=== PATIENT | female | born 1960 | race Caucasian/White ===

== ENCOUNTER → 2018-01-11 | Outpatient (CLI) | payer OTHER ==
--- NOTE | 2018-01-11 16:23 | RADIOLOGY IMAGING REPORT ---
FACILITY: [facility] PATIENT NAME: CHLOÉ RUBIO : [id number] MR: [id number] V: [id number] EXAM DATE: [id number] ORDERING PHYSICIAN: FERN DIAS TECHNOLOGIST: Tiffany Hall PROCEDURE:BILATERAL DIGITAL SCREENING MAMMOGRAM WITH CAD ASSISTED INTERPRETATION & 3D TOMOSYNTHESIS COMPARISON:Prior mammograms 09/01/16, 06/20/14. INDICATIONS:SCREENING FINDINGS: There are bilateral subpectoral breast implants in place. CC and MLO views were obtained both with and without implant displacement. Small to moderate amount of fibroglandular tissue is seen anterior to the implants. The parenchymal pattern has remained stable allowing for difference in mammographic technique & patient positioning. There is no evidence of malignant appearing mass, malignant appearing calcifications or other secondary sign of malignancy in either breast. DIAGNOSTIC CATEGORY 2--BENIGN FINDING. RECOMMENDATIONS: ROUTINE MAMMOGRAM AND CLINICAL EVALUATION. IMPRESSION: BIRADS 2: Benign finding No significant abnormality is seen. Dictated by: Kalpana Muniz M.D. on 01/11/2018 at 11:48 Transcribed by: FARHAN on 01/11/2018 at 13:07 Approved by: Kalpana Muniz M.D. on 01/11/2018 at 16:22 [facility]
== END ==
LOC: MAMO 01:03
PROVIDERS: ATTEND Obstetrics & Gynecology
DX: Z12.31 Encounter for screening mammogram for malignant neoplasm of breast (principal); Z98.82 Breast implant status
CPT/HCPCS: 77063; 77067

== ENCOUNTER → 2018-02-08 | Outpatient (CLI) | payer OTHER ==
--- NOTE | 2018-02-08 16:17 | RADIOLOGY IMAGING REPORT ---
FACILITY: [facility] PATIENT NAME: Marilu Sainz : 1960 MR: [id number] V: [id number] EXAM DATE: [id number] ORDERING PHYSICIAN: CIERRA MCGRAW TECHNOLOGIST: Location: [facility] Patient: Marilu Sainz : 1960 Visit/Account:[id number] Date of Sevice: 02/08/2018 FOOT LEFT W/O CONTRAST COMPARISON: None. HISTORY: Delayed healing left fifth metatarsal fracture. TECHNIQUE: Noncontrast axial CT of the left foot and ankle with coronal and sagittal reformats. One of the following dose optimization techniques was utilized in the performance of this exam: auto mated exposure control; adjustment of the mA and/or kV according to patient size; or use of iterative reconstruction technique. Specific details can be referenced in the facility's radiology CT exam op erational policy. CONTRAST: None. FINDINGS: BONES : There is a lucent oblique fracture through the mid fifth metatarsal shaft, with up to 2 mm o f medial displacement of the distal fracture fragment distally. There is no evidence of bony bridging but there is a small amount of callus within the fracture line, particularly along its plantar mathieu n. There are no sclerotic changes. No other fractures are seen. Alignment within normal study. Calcan eal height is preserved. No significant degenerative changes in the foot or ankle. No osteochondral d efects in the talar dome. FLUID: No appreciable effusion or drainable fluid collection. SOFT TISSUES: The major ankle tendons and foot tendons are normal by CT... No focal muscle atrophy or appreciable muscle edema. OTHER: Negative. IMPRESSION: Oblique left fifth metatarsal midshaft fracture with up to 2 mm of medial displacement of the distal fracture fragment. Small amount of callus along the fracture line, but no bony bridging at this time. . Report Dictated By: Jayden Izaguirre at 02/08/2018 4:08 PM Report E-Signed By: Jayden Izaguirre at 02/08/2018 4:13 PM WSN:[id number]
== END ==
LOC: CT 13:54
PROVIDERS: ATTEND Orthopaedic Surgery
DX: S92.352G Displaced fracture of fifth metatarsal bone, left foot, subsequent encounter for fracture with delayed healing (principal)

== ENCOUNTER → 2018-09-06 | Outpatient (CLI) | payer OTHER ==
--- NOTE | 2018-09-06 15:24 | RADIOLOGY IMAGING REPORT ---
FACILITY: [facility] PATIENT NAME: Marilu Sainz : 1960 MR: [id number] V: [id number] EXAM DATE: ORDERING PHYSICIAN: FERN DIAS TECHNOLOGIST: Location: [facility] Patient: Marilu Sainz : 1960 Visit/Account:[id number] Date of Sevice: 09/06/2018 DEXA Scan Clinical history: History of osteoporosis,. Comparison: DEXA scan from 04/05/2017. LUMBAR SPINE: The bone mineral density (BMD) measured from L1-L4 correlates with a Z-score of -0.8 and a T-score of -2.1 which is osteopenia as defined by the World Health Organization. The corresponding risk of fra cture in the lumbar spine is 4-6 times increased compared with a young adult reference population. T his value has increase by 5.1 % since the prior study. More than 5% change is considered significant . HIP: Bone mineral density (BMD) measured in the LEFT total hip region correlates with a Z-score -0.2 and a T-score of -1.2 which is osteopenia as defined by the World Health Organization. The corresponding risk of fracture in the hip is 2-3 times increased compared to a young adult reference population. Th is value has decrease by 0.2 % since the prior study. More than 5% change is considered significant. T score left femoral neck -1.2 Bone mineral density (BMD) measured in the Femoral Neck region measures 0.877 g/cm?. IMPRESSION: 1. Lumbar spine: Osteopenia. There has been 5.1% increase in the bone mineral density since the pre vious exam. 2. Left Total Hip: Osteopenia. There has been 0.2% decrease in the bone mineral density since the p revious exam. 3. Femoral Neck: Bone Mineral Density is 0.877 g/cm? The next DEXA scan of this patient should include the following sites: L1-L4 and the left hip. FRAX? WHO Fracture Risk Assessment Tool link: <http://www.shef.ac.uk/FRAX/tool.jsp?locationValue=9> PLEASE NOTE: 1) The World Health Organization defines low BMD as follows: T-score Normal > -1 Osteopenia < -1 and > -2.5 Osteoporosis < -2.5 without fractures Established osteoporosis < -2.5 with fractures 2) In general, you may wish to consider: Diagnosis Treatment Follow-up DEXA Normal BMD Prevention 2-3 years Osteopenia Prevention/therapy 1-2 years Osteoporosis Therapy Yearly 3) Fracture risk estimated from the T-score is more accurate for vertebral fractures (often spontane ous) than for hip fractures. Report Dictated By: Kalpana Muniz MD at 09/06/2018 3:17 PM Report E-Signed By: Kalpana Muniz MD at 09/06/2018 3:19 PM WSN:[id number]
== END ==
LOC: RAD 09:51
PROVIDERS: ATTEND Obstetrics & Gynecology
DX: Z13.820 Encounter for screening for osteoporosis (principal); M85.89 Other specified disorders of bone density and structure, multiple sites
CPT/HCPCS: 77080

== ENCOUNTER → 2019-04-22 | Outpatient (CLI) | payer OTHER ==
--- NOTE | 2019-04-23 11:31 | RADIOLOGY IMAGING REPORT ---
FACILITY: [facility] PATIENT NAME: CHLOÉ RUBIO : [id number] MR: [id number] V: [id number] EXAM DATE: [id number] ORDERING PHYSICIAN: FERN DIAS TECHNOLOGIST: Myriam Oseguera PROCEDURE: BILATERAL DIGITAL SCREENING MAMMOGRAM WITH CAD ASSISTED INTERPRETATION & 3D TOMOSYNTHESIS REASON FOR STUDY: Screening. COMPARISON: 01/11/18, priors to 06/20/14. VIEWS OBTAINED: 2D & 3D full field CC & MLO projections. BREAST DENSITY: The breast parenchyma is heterogeneously dense. MAMMOGRAM FINDINGS: The indwelling bilateral implants appear to have been revised from saline to silicone between the 2013 & 2015 comparison exams. There is density over the posterior superior aspect of the Left implant in the MLO projection. The implants are otherwise unremarkable in appearance. There are no mammographic findings concerning for malignancy. IMPRESSION: BIRADS 2: Benign finding. Clinical correlation with attention to the Left breast implant. If there is any clinical concern for implant rupture, breast MR could be utilized for silicone extravagation. DIAGNOSTIC CATEGORY 2--BENIGN FINDING. RECOMMENDATIONS: ROUTINE MAMMOGRAM AND CLINICAL EVALUATION IN 1YR. Dictated by: Marciano Simmons on 04/23/2019 at 9:24 Transcribed by: FARHAN on 04/23/2019 at 10:57 Approved by: Marciano Simmons on 04/23/2019 at 11:27 [facility]
== END ==
LOC: MAMO 00:46
PROVIDERS: ATTEND Obstetrics & Gynecology
DX: Z12.31 Encounter for screening mammogram for malignant neoplasm of breast (principal); Z98.82 Breast implant status; Z80.3 Family history of malignant neoplasm of breast
CPT/HCPCS: 77063; 77067